=== PATIENT | female | born 1995 | race Caucasian/White ===

== ENCOUNTER → 2016-07-18 | Outpatient (CLI) | payer OTHER ==
--- NOTE | 2016-07-18 16:34 | REP ---
BILATERAL MAMMOGRAM AND BILATERAL BREAST ULTRASOUND: FAMILY HISTORY: Breast cancer in mother, maternal aunt and maternal grandmother. Age of mother at diagnosis was 34 years. Reportedly there is bilateral nipple discharge and bilateral palpable abnormalities, medially on the right and laterally on the left. The areas are marked on the skin with a triangular marker. Mild scattered fibroglandular elements are seen without evidence of a discrete mass or architectural distortion. No clustered microcalcifications are seen. Real-time sonographic evaluation of retroareolar regions is performed as well as the palpable abnormality medially on the right and laterally on the left. No discrete cystic or solid nodule is seen bilaterally. IMPRESSION: ACR 2 benign. Mammogram shows no evidence of mass or clustered microcalcifications. There is no mammographic or sonographic evidence of a mass at the site of the reported abnormalities bilaterally. Clinical correlation and followup recommended. BI-RADS/ACR category 2 mammogram. Benign finding(s). Routine annual screening mammography (for women over age 40). This mammogram was interpreted with the aid of an FDA-approved computer-aided detection system. The patient states she/he had a clinical breast exam in July 2016. The patient letter being requested is M2. Signed by Manuel Mccain MD 07/19/2016 01:26 P
== END ==
LOC: M RAD 14:14
PROVIDERS: ATTEND Family Medicine
DX: N64.4 Mastodynia (principal); N64.52 Nipple discharge